=== PATIENT | male | born 1985 | race Caucasian/White ===

== ENCOUNTER → 2020-03-06 | Outpatient (CLI) | payer SELFPAY ==
--- NOTE | 2020-03-06 15:54 | Diagnostic Imaging Report ---
INDICATION: Lower back pain. COMPARISON: None. FINDINGS: Frontal and lateral views of the lumbar spine were obtained. Alignment and vertebral heights are maintained. There is no fracture or destructive process. No significant degenerative disease is noted in the lumbar spine. Limited views of the abdomen demonstrate nonobstructive bowel gas pattern. IMPRESSION: 1. No acute fracture or dislocation of the lumbar spine. Dictated by: Dictated on workstation # [id number]
== END ==
LOC: RAD FS 15:29
PROVIDERS: ATTEND Nurse Practitioner Family
DX: M54.5 Low back pain (principal)
CPT/HCPCS: 72100

== ENCOUNTER 2020-04-06 15:34 | Emergency (ER) | payer SELFPAY ==
[~2020-04-06] VITALS: Ht 185 cm; Wt 81.0 kg
[2020-04-06] MEDS ORDERED: ORPHENADRINE 60 MG/2 ML (NORFLEX) AMP (ED ONLY) IM STA (15:44)
[2020-04-06] MEDS ORDERED: KETOROLAC 30 MG/ML VIAL IM STA (15:44)
[2020-04-06 15:48] VITALS: BP 125/82
--- NOTE | 2020-04-06 15:51 | ED Back Pain ---
General Chief Complaint: Back Problems Stated Complaint: LWR BACK/RT LEG PAIN Source of Information: Patient History of Present Illness Date Seen by Provider: Apr 06, 2020 Time Seen by Provider: 15:46 Initial Comments 34-year-old male presents with chronic right-sided low back pain with sciatica For the last 10 to 12 weeks. Patient reports he had a CT myelogram done yesterday but does not know the results. Patient reports that they are planning on doing a surgery for it. Patient comes in today for pain. He has no new acute injury. Reports that he has been taking a few extra pain medications, he vomited and now the was having the pain. He denies any fever, chills. No issues with his bowel or bladder. Allergies and Home Medications Allergies Coded Allergies: No Known Drug Allergies (Unverified , 04/06/20) Patient Home Medication List Home Medication List Reviewed: Yes Review of Systems Constitutional: No chills EENTM: no symptoms reported Respiratory: no symptoms reported Cardiovascular: no symptoms reported Gastrointestinal: vomiting Genitourinary: no symptoms reported Musculoskeletal: see HPI, back pain Skin: no symptoms reported Psychiatric/Neurological: See HPI Past Jtngbwz-Cuptxf-Vfxnly Hx Past Med/Social Hx: Reviewed Nursing Past Med/Soc Hx Physical Exam Vital Signs Capillary Refill : Height, Weight, BMI Height: '" Weight: lbs. oz. kg; BMI Method: General Appearance: Other (Mild discomfort) HEENT: PERRL/EOMI Neck: Normal Inspection, Non Tender, Supple Cardiovascular: Regular Rate, Rhythm, No Edema Respiratory: Lungs Clear, Normal Breath Sounds Gastrointestinal: Non Tender, Soft Back: Other (Tenderness to palpation right lower back) Extremity: Normal Capillary Refill, Normal Inspection, Other (Painful but normal range of motion right leg) Neurologic/Psychiatric: Alert, Oriented x3, No Motor/Sensory Deficits, Normal Mood/Affect, deputy county clerk II-XII Norm as Tested Skin: Normal Color, Warm/Dry Progress/Results/Core Measures Results/Orders My Orders Orders - KULWINDER PUENTES DO Ketorolac Injection (Toradol Injection) (04/06/20 15:44) Norflex 60 Mg Im (04/06/20 15:44) Progress Progress Note : Time: 15:49 Progress Note Patient has known low back pain with sciatica With no new acute injury. He will need to follow-up with his primary care for the results of his CT myelogram, surgery preparation and further outpatient therapy. Patient is already prescribed pain medication. I will add baclofen. Patient stable and will be discharged home Departure Impression Primary Impression: Lumbar radiculopathy Additional Impression: Sciatica of right side Disposition: HOME, SELF-CARE Condition: Stable Departure-Patient Inst. Referrals: GAURAV LEONARDO MD (PCP/Family) Primary Care Physician Patient Instructions: Sciatica, Back Flexion Stretching Exercises, Radiculopathy (DC) Add. Discharge Instructions: 4% topical lidocaine with menthol to affected area as directed on package Warm moist heat to affected area All discharge instructions reviewed with patient and/or family. Voiced understanding. Scripts Baclofen (Baclofen) 5 Mg Tablet 5 MG PO Q8H, #15 TAB Prov: KULWINDER PUENTES DO 04/06/20 KULWINDER PUENTES DO Apr 06, 2020 15:51
[2020-04-06] MEDS ORDERED: BACL5TAB PO (15:52)
== END 2020-04-06 16:05 | disposition home or self-care (01) ==
LOC: EDUNIT# 15:34 → ER FS 15:37
DX: M54.16 Radiculopathy, lumbar region (principal); M54.31 Sciatica, right side
CPT/HCPCS: 99284

== ENCOUNTER → 2021-01-22 | Outpatient (CLI) | payer OTHER ==
[~2021-01-22] MED LIST: BACL5TAB PO
--- NOTE | 2021-01-22 11:03 | Diagnostic Imaging Report ---
INDICATION: Surgery in April 2020. Continued back pain. EXAMINATION: Lumbar spine MRI on 01/22/2021. FINDINGS: There is normal height and alignment of the vertebral bodies. No fractures or subluxations. The tip of the conus is unremarkable in appearance and location. L1-L2: Unremarkable. L2-L3: There is bilateral facet and ligamentum flavum hypertrophy. No central stenosis. There is mild bilateral neuroforaminal narrowing. L3-L4: There is bilateral facet and ligamentum flavum hypertrophy. There is a mild right paracentral broad-based bulging disc. The central canal is patent. There is moderate bilateral neuroforaminal stenosis. L4-L5: There is intervertebral disc space narrowing, disc desiccation, and a broad-based bulging disc with bilateral facet and ligamentum flavum hypertrophy. There is secondary moderate central stenosis with narrowing of the lateral recesses. There is severe left and moderate to severe right neuroforaminal stenosis. L5-S1: There is intervertebral disc space narrowing, disc desiccation, and a broad-based bulging disc containing an annular tear. There is bilateral facet and ligamentum flavum hypertrophy. There is secondary moderate central stenosis. There is bilateral moderate to severe neuroforaminal narrowing. The visualized intra-abdominal structures appear unremarkable. IMPRESSION: Multilevel degenerative disease as discussed above. Dictated by: Dictated on workstation # [id number]
== END ==
LOC: RAD 08:45
PROVIDERS: ATTEND Family Medicine
DX: M47.816 Spondylosis without myelopathy or radiculopathy, lumbar region (principal); M47.817 Spondylosis without myelopathy or radiculopathy, lumbosacral region; M51.26 Other intervertebral disc displacement, lumbar region; M51.27 Other intervertebral disc displacement, lumbosacral region; M51.36 Other intervertebral disc degeneration, lumbar region; M51.37 Other intervertebral disc degeneration, lumbosacral region; M48.061 Spinal stenosis, lumbar region without neurogenic claudication; M48.07 Spinal stenosis, lumbosacral region; M24.28 Disorder of ligament, vertebrae
CPT/HCPCS: 72148

== ENCOUNTER 2021-03-21 13:37 | Observation (INO) | payer SELFPAY ==
[~2021-03-21] VITALS: Ht 187.9 cm; Wt 76.0 kg
[2021-03-21] MEDS ORDERED: morphine INJ 10 MG/ML 1ML (SYR OR VIAL) IVP STA ×2 (13:53→15:00)
[2021-03-21] MEDS ORDERED: NS IV 1000 ML 1,000 ML IV SCH ×2 (14:00→15:00)
[2021-03-21] MEDS ORDERED: NS 100 ML (IVPB) BAG IV ONE (14:00)
[2021-03-21] MEDS ORDERED: ONDANSETRON 4 MG/2 ML (SDV) Z0FRAN IVP ONE (14:00)
[2021-03-21] MEDS ORDERED: IOHEXOL 350 MG/ML 100 ML (OMNIPAQUE 350) VIAL IV ONE (14:00)
[2021-03-21] MEDS ORDERED: CATHETER FLUSH 10 ML SYR IV PRN ×2 (14:00→18:45)
[2021-03-21] MEDS ORDERED: HOLD METFORMIN - RECEIVED CONTRAST 20 ML VIAL IV SCH (14:00)
[2021-03-21 14:02] LABS: BASOPHILS % (AUTO) 1 % (0-10); EOSINOPHILS % (AUTO) 2 % (0-10); HEMATOCRIT 48 % (40-54); HEMOGLOBIN 16.4 g/dL (13.3-17.7); LYMPHOCYTES % (AUTO) 24 % (12-44); MEAN CORPUSCULAR HEMOGLOBIN 30 pg (25-34); MEAN CORPUSCULAR HGB CONC 35 g/dL (32-36); MEAN CORPUSCULAR VOLUME 87 fL (80-99); MEAN PLATELET VOLUME 8.6 fL (9.0-12.2); MONOCYTES % (AUTO) 7 % (0-12); NEUTROPHILS % (AUTO) 66 % (42-75); PLATELET COUNT 266 10^3/uL (130-400)
[2021-03-21 14:03] LABS: BASOPHILS # (AUTO) 0.1 10^3/uL (0.0-0.1); EOSINOPHILS # (AUTO) 0.2 10^3/uL (0.0-0.3); LYMPHOCYTES # (AUTO) 2.4 X 10^3 (1.0-4.0); MONOCYTES # (AUTO) 0.7 X 10^3 (0.0-1.0); NEUTROPHILS # (AUTO) 6.6 X 10^3 (1.8-7.8)
--- NOTE | 2021-03-21 14:10 | ED General ---
General Chief Complaint: Back Problems Stated Complaint: WOUND LOWER ABD Source of Information: Patient (VENECIA QUIROZ DO) History of Present Illness Date Seen by Provider: Mar 21, 2021 Time Seen by Provider: 13:35 Initial Comments Patient is a 35-year-old Oriental [employer] male who presents with right lower quadrant/inguinal penetrating trauma. Patient was working using machinery when a piece of angle iron flew off penetrating his lower torso. Patient removed metal prior to ED arrival. On exam, the patient has a 5 cm gaping deep laceration with minimal external bleeding. Distal pulses are intact. An IV was established, fluids and pain medication were given. Dr. Hnids on-call for trauma accepts patient to [facility] emergency department. A CT of the abdomen pelvis will be obtained with results pending prior to EMS transfer. [facility] ED provider made aware of transfer. Timing/Duration: 1/2 Hour Severity: Moderate Modifying Factors: improves with Other Associated Systoms: Other (VENECIA QUIROZ DO) Allergies and Home Medications Allergies Coded Allergies: No Known Drug Allergies (Unverified , 04/06/20) Patient Home Medication List Home Medication List Reviewed: Yes (VENECIA QUIROZ DO) Baclofen (Baclofen) 5 Mg Tablet, 5 MG PO Q8H Prescribed by: KULWINDER PUENTES on 04/06/20 5042 Review of Systems Review of Systems Constitutional: see HPI Gastrointestinal: see HPI Skin: see HPI (VENECIA QUIROZ DO) Past Qvabfvm-Smqnlx-Ictjjp Hx Patient Social History Tobacco Use?: Yes Tobacco type used: Cigarettes Smoking Status: Current Everyday Smoker Use of E-Cig and/or Vaping dev: No Substance use?: No Alcohol Use?: Yes Alcohol type: Hard Liquor Pt feels they are or have been: No (VENECIA QUIROZ DO) Seasonal Allergies Seasonal Allergies: No (VENECIA QUIROZ DO) Past Medical History Surgeries: Yes Orthopedic Respiratory: No Cardiac: No Neurological: No Genitourinary: No Gastrointestinal: No Musculoskeletal: No Endocrine: No HEENT: No Cancer: No Psychosocial: No Integumentary: No Blood Disorders: No (VENECIA QUIROZ DO) Physical Exam Vital Signs Vital Signs - First Documented 03/21/21 14:02 Temp 37.0 Pulse 82 Resp 16 B/P (MAP) 138/75 (96) Pulse Ox 99 O2 Delivery Room Air (YANIRA MAI MD) Vital Signs Capillary Refill : (VENECIA QUIROZ DO) Height, Weight, BMI Height: '" Weight: lbs. oz. kg; 23.00 BMI Method: General Appearance: No Apparent Distress, Mild Distress HEENT: PERRL/EOMI Neck: Full Range of Motion Respiratory: Lungs Clear, Normal Breath Sounds Cardiovascular: Regular Rate, Rhythm Gastrointestinal: Soft; No Distended, No Guarding, No Rebound; Tenderness, Other (5 cm gaping deep laceration over right pelvis/inguinal region with controlled external bleeding. The wound was now probed digitally. ) Back: Normal Inspection Extremity: Normal Capillary Refill, Normal Inspection, Pelvis Stable Neurologic/Psychiatric: Alert, Oriented x3, No Motor/Sensory Deficits Skin: Normal Color (VENECIA QUIROZ DO) Progress/Results/Core Measures Suspected Sepsis SIRS Temperature: Pulse: Respiratory Rate: Laboratory Tests 03/21/21 13:55: White Blood Count 10.0 Blood Pressure / Mean: Laboratory Tests 03/21/21 13:55: Platelet Count 266 (VENECIA QUIROZ DO) Results/Orders Lab Results Laboratory Tests Test 03/21/21 13:55 03/21/21 15:04 03/21/21 15:45 Range/Units White Blood Count 10.0 7.9 4.3-11.0 10^3/uL Red Blood Count 5.46 4.81 4.30-5.52 10^6/uL Hemoglobin 16.4 14.4 13.3-17.7 g/dL Hematocrit 48 42 40-54 % Mean Corpuscular Volume 87 87 80-99 fL Mean Corpuscular Hemoglobin 30 30 25-34 pg Mean Corpuscular Hemoglobin Concent 35 34 32-36 g/dL Red Cell Distribution Width 12.8 12.5 10.0-14.5 % Platelet Count 266 208 130-400 10^3/uL Mean Platelet Volume 8.6 L 8.9 L 9.0-12.2 fL Immature Granulocyte % (Auto) 0 0 % Neutrophils (%) (Auto) 66 70 42-75 % Lymphocytes (%) (Auto) 24 20 12-44 % Monocytes (%) (Auto) 7 7 0-12 % Eosinophils (%) (Auto) 2 2 0-10 % Basophils (%) (Auto) 1 1 0-10 % Neutrophils # (Auto) 6.6 5.5 1.8-7.8 10^3/uL Lymphocytes # (Auto) 2.4 1.6 1.0-4.0 10^3/uL Monocytes # (Auto) 0.7 0.6 0.0-1.0 10^3/uL Eosinophils # (Auto) 0.2 0.1 0.0-0.3 10^3/uL Basophils # (Auto) 0.1 0.0 0.0-0.1 10^3/uL Immature Granulocyte # (Auto) 0.0 0.0 0.0-0.1 10^3/uL Sodium Level 139 135-145 MMOL/L Potassium Level 3.5 L 3.6-5.0 MMOL/L Chloride Level 103 98-107 MMOL/L Carbon Dioxide Level 23 21-32 MMOL/L Anion Gap 13 5-14 MMOL/L Blood Urea Nitrogen 13 7-18 MG/DL Creatinine 0.70 0.60-1.30 MG/DL Estimat Glomerular Filtration Rate 130 BUN/Creatinine Ratio 19 Glucose Level 115 H 70-105 MG/DL Calcium Level 9.1 8.5-10.1 MG/DL Corrected Calcium 8.5-10.1 MG/DL Total Bilirubin 0.3 0.1-1.0 MG/DL Aspartate Amino Transf (AST/SGOT) 26 5-34 U/L Alanine Aminotransferase (ALT/SGPT) 24 0-55 U/L Alkaline Phosphatase 61 40-136 U/L Total Protein 7.6 6.4-8.2 GM/DL Albumin 4.6 H 3.2-4.5 GM/DL Percent Immature Platelet Fraction 0.8 0.0-7.6 % Urine Color YELLOW Urine Clarity CLEAR Urine pH 6.0 5-9 Urine Specific Cameron 1.010 L 1.016-1.022 Urine Protein NEGATIVE NEGATIVE Urine Glucose (UA) NEGATIVE NEGATIVE Urine Ketones NEGATIVE NEGATIVE Urine Nitrite NEGATIVE NEGATIVE Urine Bilirubin NEGATIVE NEGATIVE Urine Urobilinogen 0.2 < = 1.0 MG/DL Urine Leukocyte Esterase NEGATIVE NEGATIVE Urine RBC (Auto) 1+ H NEGATIVE Urine RBC RARE /HPF Urine WBC RARE /HPF Urine Squamous Epithelial Cells NONE /HPF Urine Crystals NONE /LPF Urine Bacteria TRACE /HPF Urine Casts NONE /LPF Urine Mucus NEGATIVE /LPF Urine Culture Indicated NO (YANIRA MAI MD) My Orders Orders - YANIRA MAI MD Morphine Injection (Morphine Injection (03/21/21 15:00) Ns Iv 1000 Ml (Sodium Chloride 0.9%) (03/21/21 15:00) Dipht,Pertuss(Acell),Tet Adult (Boostrix (03/21/21 15:00) Tranexamic Acid Injection (Cyklokapron I (03/21/21 15:15) Ns (Ivpb) (Sodium C... W/Tranexamic Acid (03/21/21 15:15) Type And Screen (03/21/21 15:03) Cbc With Automated Diff (03/21/21 15:03) Lidocaine/Epi 2% 1:100,000 (Xylocaine/Ep (03/21/21 15:12) Morphine Injection (Morphine Injection (03/21/21 15:12) Cefazolin Injection (Ancef Injection) (03/21/21 15:30) Fentanyl Inj (Sublimaze Injection) (03/21/21 15:14) Lorazepam Injection (Ativan Injection) (03/21/21 15:14) Lidocaine/Epi 2% 1:100,000 (Xylocaine/Ep (03/21/21 15:18) Lorazepam Injection (Ativan Injection) (03/21/21 15:30) Fentanyl Inj (Sublimaze Injection) (03/21/21 15:31) Ua Culture If Indicated (03/21/21 15:50) Lidocaine/Epi 2% 1:100,000 (Xylocaine/Ep (03/21/21 16:00) (YANIRA MAI MD) Medications Given in ED Current Medications Medications Dose Ordered Sig/Denise Route Start Time Stop Time Status Last Admin Dose Admin Cefazolin Sodium 1,000 mg ONCE ONCE IV 03/21/21 15:30 03/21/21 15:31 DC 03/21/21 15:36 1,000 MG Diphtheria/ Tetanus/Acell Pertussis 0.5 ml ONCE ONCE IM 03/21/21 15:00 03/21/21 15:02 DC 03/21/21 15:06 0.5 ML Iohexol 100 ml ONCE ONCE IV 03/21/21 14:00 03/21/21 14:01 DC 03/21/21 14:27 100 ML Lorazepam 1 mg ONCE ONCE IVP 03/21/21 15:30 03/21/21 15:31 DC 03/21/21 15:26 1 MG Ondansetron HCl 4 mg ONCE ONCE IVP 03/21/21 14:00 03/21/21 14:01 DC 03/21/21 14:10 4 MG Sodium Chloride 10 ml NEEDED PRN IV 03/21/21 14:00 03/21/21 14:27 10 ML Sodium Chloride 100 ml ONCE ONCE IV 03/21/21 14:00 03/21/21 14:01 DC 03/21/21 14:27 100 ML Tranexamic Acid 1000 mg/Sodium Chloride 60 ml @ 330 mls/hr ONCE ONCE IV 03/21/21 15:15 03/21/21 15:25 DC 03/21/21 15:22 330 MLS/HR (YANIRA MAI MD) Vital Signs/I&O 03/21/21 03/21/21 14:02 14:15 Temp 37.0 36.5 Pulse 82 78 Resp 16 16 B/P (MAP) 138/75 (96) 124/68 (86) Pulse Ox 99 100 O2 Delivery Room Air Room Air (YANIRA MAI MD) Vital Signs/I&O Capillary Refill : (VENECIA QUIROZ DO) Progress Note : Time: 15:15 Progress Note Patient received in transfer from [place] emergency department, penetrating wound to the right inguinal canal. EMS reports patient's vital signs were stable in route he did become somewhat tachycardic with a heart rate of 105. EMS did note increased bleeding out around the bandage around the right groin. Patient states his pain is a "6". He is not nauseated. Patient reports he did not get a tetanus shot prior to transfer nor did he get antibiotics. Both of these are st arted here in the emergency department in [place]. Patient's abdomen is soft. He has about a 4 inch deep laceration/penetrating wound in the right groin that is actively bleeding. Only a quick glance at the wound is done by me, other than that 4 x 4's and direct pressure over the wound was immediately placed. Held until the surgeon got here, Dr. HINDS. Dr. HINDS was in the room less than 15 minutes after patient arrival to the emergency department. He is exploring and attending to the wound at this time. Patient is given 100 mcg of fentanyl with 1 mg of Ativan. We will go ahead and do the TXA bolus and drip. (YANIRA MAI MD) Critical Care Note Critical Care Start Time: 15:15 Stop Time: 15:35 Total Time (minutes) 20 minutes critical care time in the initial evaluation and management of this prior to 1 trauma patient. Initial evaluation includes physical examination of the patient with quick evaluation of the right inguinal wound, direct pressure over the wound by me. Fluid management, review of the medical record from [facility], discussion with Dr. HINDS, trauma surgeon. Initiation of antibiotics, tetanus and TXA. (YANIRA MAI MD) Departure Communication (Admissions) CT abdomen pelvis: Pending An IV was established, fluids and pain medication were given. Dr. Hinds on-call trauma surgeon consulted to [place] [facility] emergency department for management. A CT of the abdomen pelvis will be obtained with results pending prior to EMS transfer. [facility] ED provider made aware of transfer. (VENECIA QUIROZ DO) Impression Primary Impression: Penetrating abdominal trauma Qualified Codes: S31.109A - Unspecified open wound of abdominal wall, unspecified quadrant without penetration into peritoneal cavity, initial encounter Disposition: ADMITTED INPATIENT Condition: Stable Admissions Decision to Admit Reason: Admit from ER (Trauma) Decision to Admit/Date: Mar 21, 2021 Time/Decision to Admit Time: 15:20 (YANIRA MAI MD) Departure-Patient Inst. Decision time for Depature: 14:14 (VENECIA QUIROZ DO) Referrals: GAURAV LEONARDO MD (PCP/Family) Primary Care Physician VENECIA QUIROZ DO Mar 21, 2021 14:10 YANIRA MAI MD Mar 21, 2021 15:17
[2021-03-21 14:21] LABS: CARBON DIOXIDE 23 MMOL/L (21-32); CHLORIDE 103 MMOL/L (98-107); POTASSIUM 3.5 MMOL/L (3.6-5.0); SODIUM 139 MMOL/L (135-145)
[2021-03-21 14:22] LABS: ALANINE AMINOTRANSFERASE 24 U/L (0-55); ALBUMIN 4.6 GM/DL (3.2-4.5); ALKALINE PHOSPHATASE 61 U/L (40-136); BILIRUBIN,TOTAL 0.3 MG/DL (0.1-1.0); BUN/CREATININE RATIO 19; CALCIUM 9.1 MG/DL (8.5-10.1); GFR ESTIMATED 130; GLUCOSE 115 MG/DL (70-105); TOTAL PROTEIN 7.6 GM/DL (6.4-8.2)
--- NOTE | 2021-03-21 14:45 | Diagnostic Imaging Report ---
CT ABDOMEN/PELVIS W TECHNIQUE: Multiple contiguous axial images were obtained through the abdomen and pelvis after administration of intravenous contrast. All CT scans use one or more of the following dose optimizing techniques: automated exposure control, MA and/or KvP adjustment based on patient size and exam type or iterative reconstruction. INDICATION: Penetrating trauma of lower abdomen COMPARISON: None available. FINDINGS: Lower chest: The lung bases are clear. No pericardial or pleural effusion. Peritoneum: No free intraperitoneal air or fluid. Liver and biliary system: The liver is normal. The gallbladder is normal. No biliary duct dilation. Spleen and Pancreas: Spleen is normal. The pancreas enhances normally without mass lesion or peripancreatic inflammatory changes. Adrenals: Normal. tract: The kidneys enhance normally without suspicious mass or obstruction. Urinary bladder is distended without wall thickening. Prostate is not enlarged. GI tract: Stomach is decompressed. No bowel obstruction. No pericolonic inflammatory changes. The appendix is normal. Vasculature and Lymph nodes: Normal caliber aorta. See below for details of vascular injury in the right lower quadrant. No abdominal or pelvic lymphadenopathy. Musculoskeletal: No fracture. There is a dermal wound in the right lower quadrant just medial to the anterior superior iliac spine. There are few foci of soft tissue gas and ill-defined low-attenuation is likely due to intramuscular hematoma within the iliac is muscle. There is a small focus of contrast blush at the base of the dermal wound progressively fills in on delayed phase images and is likely due to injury associated with the deep circumflex iliac artery or vein which courses deep to the bone. IMPRESSION: 1. Penetrating injury in the right lower quadrant results in injury of a branch of the right deep circumflex iliac artery or vein. There is a small focus of contrast blush on early phase of imaging which progressively fills in on delayed phase imaging and the appearance could be due to small arterial bleed versus venous injury. 2. No radiopaque foreign body. 3. No other visceral injury within the abdomen or pelvis. Case was discussed with Dr. Ovalle by Dr. Dewey Piña at 2:40 PM on 03/21/2021. Dictated by: Dictated on workstation # [id number]
[2021-03-21] MEDS ORDERED: TETANUS,DIPTH,PERTUSS P/F (BOOSTRIX) 0.5 ML VIAL IM ONE (15:00)
[2021-03-21 15:10] LABS: BASOPHILS % (AUTO) 1 % (0-10); EOSINOPHILS # (AUTO) 0.1 10^3/uL (0.0-0.3); EOSINOPHILS % (AUTO) 2 % (0-10); HEMATOCRIT 42 % (40-54); HEMOGLOBIN 14.4 g/dL (13.3-17.7); LYMPHOCYTES # (AUTO) 1.6 10^3/uL (1.0-4.0); LYMPHOCYTES % (AUTO) 20 % (12-44); MEAN CORPUSCULAR HEMOGLOBIN 30 pg (25-34); MEAN CORPUSCULAR HGB CONC 34 g/dL (32-36); MEAN CORPUSCULAR VOLUME 87 fL (80-99); MEAN PLATELET VOLUME 8.9 fL (9.0-12.2); MONOCYTES # (AUTO) 0.6 10^3/uL (0.0-1.0); MONOCYTES % (AUTO) 7 % (0-12); NEUTROPHILS # (AUTO) 5.5 10^3/uL (1.8-7.8); NEUTROPHILS % (AUTO) 70 % (42-75); PLATELET COUNT 208 10^3/uL (130-400); WHITE BLOOD COUNT 7.9 10^3/uL (4.3-11.0)
[2021-03-21] MEDS ORDERED: morphine INJ 10 MG/ML 1ML (SYR OR VIAL) ONE (15:12)
[2021-03-21] MEDS ORDERED: LIDOCAINE/EPI 2% 1:100,00 (XYLOCAINE) 20 ML VIAL ONE ×2 (15:12→15:18)
[2021-03-21] MEDS ORDERED: LORazepam INJ 2 MG/ML (ATIVAN) VIAL ONE (15:14)
[2021-03-21] MEDS ORDERED: fentaNYL INJ 100 MCG/2 ML AMP ONE (15:14)
[2021-03-21] MEDS ORDERED: TRANEXAMIC ACID INJECTION 1,000 MG in NS (IVPB) 50 ML IV ONE (15:15)
[2021-03-21] MEDS ORDERED: TRANEXAMIC ACID INJECTION 1,000 MG in NS (IVPB) 250 ML IV SCH (15:15)
[2021-03-21] MEDS ORDERED: ceFAZolin INJECTION 1,000 MG VIAL IV ONE (15:30)
[2021-03-21] MEDS ORDERED: LORazepam INJ 2 MG/ML (ATIVAN) VIAL IVP ONE (15:30)
[2021-03-21] MEDS ORDERED: fentaNYL INJ 100 MCG/2 ML AMP IVP STA (15:31)
[2021-03-21 15:56] LABS: BILIRUBIN,URINE NEGATIVE (NEGATIVE); CLARITY,URINE CLEAR; COLOR,URINE YELLOW; GLUCOSE, URINE (UA) NEGATIVE (NEGATIVE); KETONES,URINE NEGATIVE (NEGATIVE); LEUKOCYTE ESTERASE ,URINE NEGATIVE (NEGATIVE); NITRITE,URINE NEGATIVE (NEGATIVE); PROTEIN,URINE NEGATIVE (NEGATIVE)
[2021-03-21] MEDS ORDERED: LIDOCAINE/EPI 2% 1:100,00 (XYLOCAINE) 20 ML VIAL INJ ONE ×2 (16:00)
[2021-03-21 16:04] LABS: BACTERIA,URINE TRACE /HPF; RBC,URINE RARE /HPF; WBC,URINE RARE /HPF
[2021-03-21] MEDS ORDERED: fentaNYL INJ 100 MCG/2 ML AMP IVP PRN ×2 (18:30→19:00)
[2021-03-21] MEDS ORDERED: oxyCODONE/APAP 7.5-325 MG (PERCOCET 7.5) TABLET PO PRN (18:30)
[2021-03-21] MEDS ORDERED: CEPH500T PO (18:32)
[2021-03-21] MEDS ORDERED: OXYC1TAB15 PO (18:32)
--- NOTE | 2021-03-21 18:34 | Discharge Inst-Surgical ---
D/C Lap Instructions-JOANN New, Converted, or Re-Newed RX: RX on Chart Follow Up Appt in 1 week Activity as tolerated No driving for 24 hours No driving while on pain medications Dressing change: pack wet to dry with qauze followed by pressure dressing BID. Regular Diet Symptoms to Report: Fever over 101 degree F, Nausea/Vomiting Infection Signs and Symptoms to report: Increased redness, Foul odor of wound, Increased drainage Bathing instructions: May shower Operative Area Clean/Dry; Keep incision clean/dry If any problems/questions: Contact your physician or go to Emergency Room THEO DAVID MD Mar 21, 2021 18:34
[2021-03-21] MEDS ORDERED: ONDANSETRON 4 MG/2 ML (SDV) Z0FRAN IVP PRN (19:00)
--- NOTE | 2021-03-21 19:29 | HISTORY AND PHYSICAL ---
DATE OF SERVICE: 03/21/2021 ADMITTING PRIMARY CARE PHYSICIAN: Dr. Ronal Gatica. HISTORY OF PRESENT ILLNESS: The patient presented to [facility] Department this afternoon after sustaining a penetrating trauma to the right groin. He states that he was working with a metal and some form of saw and there was a sharp blade like structure causing impalement and laceration to the right inguinal region just at the level of the inguinal ligament. He removed the foreign body and there was bleeding. A CT scan was performed, which did show no breach into the peritoneal cavity. There was a mention of a potential injury to one of the branching veins off of the right circumflex vein. Upon examination, the patient has a large wound approximately 10 cm in size, which is clean and there was venous oozing; however, after the administration of 1% lidocaine with epinephrine and suturing the fascia closed using interrupted 2-0 Vicryl sutures, there was good hemostasis. He has a palpable dorsalis pedis and posterior tibial pulses bilaterally. PAST MEDICAL HISTORY: Degenerative joint disease. PAST SURGICAL HISTORY: Left hip pinning lumbar open reduction and internal fixation. ALLERGIES: NO KNOWN DRUG ALLERGIES. MEDICATIONS: Baclofen 5 mg q.8 hours, oxycodone p.r.n. SOCIAL HISTORY: Positive smoke, social alcohol. FAMILY HISTORY: Noncontributory. VITAL SIGNS: Temperature 37.0, blood pressure 138/75, pulse 82, respirations 16, pulse ox 99% on room air. REVIEW OF SYSTEMS: Well-nourished male, currently guarded secondary to the discomfort of the right groin. He is not experiencing any shortness of breath and difficulty breathing. No chest pain, palpitations, diaphoresis. No nausea, vomiting, no diarrhea or constipation. No fever, chills, no recent inadvertent weight loss. All other review of systems negative. PHYSICAL EXAMINATION: CHEST: Clear. Good breath sounds bilaterally. HEART: Regular, no murmurs. EXTREMITIES: There is bilateral dorsalis pedis and posterior tibial pulses palpable bilateral. ABDOMEN: Soft, nontender, nondistended. SKIN: There is a laceration approximately 10 cm along the inguinal ligament in the direction of the inguinal ligament. This was examined after local anesthesia and the impalement appeared to be at a 90-degree angle with the skin and there was some venous oozing; however, there was no arterial bleeding. There was also no neurologic deficits. SKIN: Warm, dry. LABORATORY DATA: WBC 7.9, hemoglobin 14.4, hematocrit 42, platelets 208. BUN 13, creatinine 0.70. ASSESSMENT AND PLAN: A 35-year-old male with penetrating trauma to the right groin. After local anesthesia and physical examination, the impalement was at right degree angle at the inguinal ligament. This did not track superiorly or breached the abdominal fascia. The lesion did breach the fascia overlying the proximal portion of the right lower extremity and there was some venous oozing; however, there was no arterial bleeding identified. We will proceed with closing the fascial and deeper layers with an interrupted Vicryl suture in layers and leave the skin and subcutaneous open due to the bacterial contamination. He will also place tranexamic acid and the wound packed with wet to dry dressings followed by foam tape pressure dressing followed by a sandbag for the next 8 hours. We will reevaluate the wound tomorrow morning and if there is no bleeding, we will then discharge him home and instruct him to proceed with Keflex for the next week as well as wet to dry dressings on a b.i.d. basis to allow to close by secondary intention. Job ID: [id number] DocumentID: [id number] Dictated Date: 03/21/2021 18:54:43 Drywall Sander Date: 03/21/2021 19:28:15 Dictated By: THEO DAVID MD [facility]
--- NOTE | 2021-03-21 19:36 | OPERATIVE REPORT ---
DATE OF SERVICE: 03/21/2021 PREOPERATIVE DIAGNOSIS: A 10 cm laceration along the inguinal ligament. POSTOPERATIVE DIAGNOSES: Fascial breach with the impalement 90 degrees from the skin. There was no tracking superiorly or inferiorly and there was no breach into the peritoneal fascia. There was venous oozing identified and this was consistent with a CT scan finding of a possible partial laceration of a branch of the right circumflex vein. PROCEDURE: Local exploration of wound. Layered closure of the fascia and muscular layers using interrupted 2-0 Vicryl sutures. Hemostasis of lacerated blood vessel. SURGEON: Theo David MD. ANESTHESIA: Local. ESTIMATED BLOOD LOSS: Minimal. FINDINGS: Good hemostasis with no foreign body as well as no signs of infection. DISPOSITION: The patient tolerated the procedure well. INDICATIONS: The patient is a 35-year-old male who presented to [facility] after working with a metal and some form of a saw. There was a ricochet of the metal, which was shaped like a blade approximately 4 inches in diameter. He states he is unsure how deep the lesion went; however, there was a significant amount of bleeding. He was seen at [facility]. A CT scan was performed, which did show a possible partial laceration of a branch off of the right circumflex vein. Upon examination, there was venous oozing; however, this has slowed down with injection of 1% lidocaine with epinephrine. He has palpable dorsalis pedis and posterior tibial pulses bilaterally. DESCRIPTION OF PROCEDURE: After local anesthesia with 1% lidocaine with epinephrine, the fascia as well as the muscle layers were then closed in layers using 2-0 Vicryl interrupted sutures. Once this was done, good hemostasis was observed. The skin and subcutaneous tissue was left open and the wound packed wet to dry, followed by a pressure dressing with a 4-inch foam tape followed by a sandbag for the next 8 hours. We will continue with monitoring as well as IV antibiotics and instruct staff to leave the dressing on overnight and we will personally remove the dressing and evaluate the wound tomorrow. Job ID: [id number] DocumentID: [id number] Dictated Date: 03/21/2021 18:59:47 Bi Developer Date: 03/21/2021 19:35:23 Dictated By: THEO DAVID MD
[2021-03-21] MEDS: CATHETER FLUSH 10 ML SYR IV SCH (21:47)
[2021-03-21] MEDS: HYDROcodone/APAP 5 MG/325 MG (LORTAB) TAB PO PRN (21:47)
[2021-03-21] MEDS ORDERED: NS (IVPB) 50 ML ONE (21:54)
[2021-03-21] MEDS ORDERED: SODIUM CHLORIDE IV SCH ×2 (23:00)
[2021-03-21] MEDS ORDERED: TRANEXAMIC ACID IV SCH ×2 (23:00)
[2021-03-21] MEDS: ceFAZolin INJECTION 1,000 MG VIAL IV SCH (23:32)
[2021-03-22 05:22] VITALS: BP 119/79
[2021-03-22 05:42] LABS: BASOPHILS # (AUTO) 0.1 10^3/uL (0.0-0.1); BASOPHILS % (AUTO) 0 % (0-10); EOSINOPHILS # (AUTO) 0.4 10^3/uL (0.0-0.3); EOSINOPHILS % (AUTO) 4 % (0-10); HEMATOCRIT 43 % (40-54); HEMOGLOBIN 14.4 g/dL (13.3-17.7); LYMPHOCYTES # (AUTO) 1.8 10^3/uL (1.0-4.0); LYMPHOCYTES % (AUTO) 16 % (12-44); MEAN CORPUSCULAR HEMOGLOBIN 30 pg (25-34); MEAN CORPUSCULAR HGB CONC 33 g/dL (32-36); MEAN CORPUSCULAR VOLUME 89 fL (80-99); MONOCYTES # (AUTO) 1.1 10^3/uL (0.0-1.0); MONOCYTES % (AUTO) 10 % (0-12); NEUTROPHILS # (AUTO) 8.2 10^3/uL (1.8-7.8); NEUTROPHILS % (AUTO) 70 % (42-75); PLATELET COUNT 195 10^3/uL (130-400); WHITE BLOOD COUNT 11.6 10^3/uL (4.3-11.0)
[2021-03-22] MEDS: HYDROcodone/APAP 5 MG/325 MG (LORTAB) TAB PO PRN ×2 (06:29→09:50)
[2021-03-22] MEDS: CATHETER FLUSH 10 ML SYR IV SCH (06:30)
[2021-03-22 07:10] VITALS: BP 115/72
[2021-03-22] MEDS ORDERED: fentaNYL INJ 100 MCG/2 ML AMP IVP ONE (07:30)
--- NOTE | 2021-03-22 07:50 | Progress Note ---
Subjective Date Seen by a Provider: Mar 22, 2021 Time Seen by a Provider: 07:00 Subjective/Events-last exam doing well. no bleeding per wound. good distal pulses. Objective Exam Vital Signs Date Time Temp Pulse Resp B/P (MAP) Pulse Ox O2 Delivery O2 Flow Rate FiO2 03/22/21 07:10 37.3 81 18 115/72 (86) 92 Room Air 03/22/21 05:24 92 Room Air 03/22/21 05:22 36.9 95 14 119/79 (92) 92 Room Air 03/22/21 01:38 96 Room Air 03/22/21 01:00 80 03/22/21 00:21 36.7 87 20 117/73 95 03/21/21 22:50 36.4 03/21/21 22:30 96 Room Air 03/21/21 20:00 37.7 93 14 126/83 96 03/21/21 19:01 98 03/21/21 18:21 98 Room Air 03/21/21 18:15 37.1 90 17 107/70 92 Room Air 03/21/21 17:57 94 20 117/79 98 Room Air 03/21/21 14:51 36.2 111 20 142/90 (107) 98 Room Air 03/21/21 14:51 36.2 111 20 142/90 (107) 98 Room Air 03/21/21 14:15 36.5 78 16 124/68 (86) 100 Room Air 03/21/21 14:02 37.0 82 16 138/75 (96) 99 Room Air I & O 03/22/21 07:00 Intake Total 2750 ml Output Total 2000 ml Balance 750 ml Capillary Refill : Less Than 3 Seconds General Appearance: No Apparent Distress HEENT: PERRL/EOMI Neck: Full Range of Motion Respiratory: Chest Non Tender, Lungs Clear, Normal Breath Sounds Cardiovascular: Regular Rate, Rhythm Peripheral Pulses: 3+ Dorsalis Pedis (R) Gastrointestinal: normal bowel sounds, non tender, soft Extremity: Normal Capillary Refill Neurologic/Psychiatric: Alert, Oriented x3 Skin: Normal Color, Other (wound clean/dry) Lymphatic: No Adenopathy Results Lab Laboratory Tests 03/21/21 13:55: White Blood Count 10.0, Red Blood Count 5.46, Hemoglobin 16.4, Hematocrit 48, Mean Corpuscular Volume 87, Mean Corpuscular Hemoglobin 30, Mean Corpuscular Hemoglobin Concent 35, Red Cell Distribution Width 12.8, Platelet Count 266, Mean Platelet Volume 8.6L, Immature Granulocyte % (Auto) 0, Neutrophils (%) (Auto) 66, Lymphocytes (%) (Auto) 24, Monocytes (%) (Auto) 7, Eosinophils (%) (Auto) 2, Basophils (%) (Auto) 1, Neutrophils # (Auto) 6.6, Lymphocytes # (Auto) 2.4, Monocytes # (Auto) 0.7, Eosinophils # (Auto) 0.2, Basophils # (Auto) 0.1, Immature Granulocyte # (Auto) 0.0, Sodium Level 139, Potassium Level 3.5L, Chloride Level 103, Carbon Dioxide Level 23, Anion Gap 13, Blood Urea Nitrogen 13, Creatinine 0.70, Estimat Glomerular Filtration Rate 130, BUN/Creatinine Ratio 19, Glucose Level 115H, Calcium Level 9.1, Corrected Calcium , Total Bilirubin 0.3, Aspartate Amino Transf (AST/SGOT) 26, Alanine Aminotransferase (ALT/SGPT) 24, Alkaline Phosphatase 61, Total Protein 7.6, Albumin 4.6H 03/21/21 15:04: White Blood Count 7.9, Red Blood Count 4.81, Hemoglobin 14.4, Hematocrit 42, Mean Corpuscular Volume 87, Mean Corpuscular Hemoglobin 30, Mean Corpuscular Hemoglobin Concent 34, Red Cell Distribution Width 12.5, Platelet Count 208, Mean Platelet Volume 8.9L, Immature Granulocyte % (Auto) 0, Neutrophils (%) (Auto) 70, Lymphocytes (%) (Auto) 20, Monocytes (%) (Auto) 7, Eosinophils (%) (Auto) 2, Basophils (%) (Auto) 1, Neutrophils # (Auto) 5.5, Lymphocytes # (Auto) 1.6, Monocytes # (Auto) 0.6, Eosinophils # (Auto) 0.1, Basophils # (Auto) 0.0, Immature Granulocyte # (Auto) 0.0, Percent Immature Platelet Fraction 0.8 03/21/21 15:45: Urine Color YELLOW, Urine Clarity CLEAR, Urine pH 6.0, Urine Specific [place] 1.010L, Urine Protein NEGATIVE, Urine Glucose (UA) NEGATIVE, Urine Ketones NE GATIVE, Urine Nitrite NEGATIVE, Urine Bilirubin NEGATIVE, Urine Urobilinogen 0.2, Urine Leukocyte Esterase NEGATIVE, Urine RBC (Auto) 1+H, Urine RBC RARE, Urine WBC RARE, Urine Squamous Epithelial Cells NONE, Urine Crystals NONE, Urine Bacteria TRACE, Urine Casts NONE, Urine Mucus NEGATIVE, Urine Culture Indicated NO 03/22/21 05:04: White Blood Count 11.6H, Red Blood Count 4.84, Hemoglobin 14.4, Hematocrit 43, Mean Corpuscular Volume 89, Mean Corpuscular Hemoglobin 30, Mean Corpuscular Hemoglobin Concent 33, Red Cell Distribution Width 12.7, Platelet Count 195, Mean Platelet Volume 9.0, Immature Granulocyte % (Auto) 0, Neutrophils (%) (Auto) 70, Lymphocytes (%) (Auto) 16, Monocytes (%) (Auto) 10, Eosinophils (%) (Auto) 4, Basophils (%) (Auto) 0, Neutrophils # (Auto) 8.2H, Lymphocytes # (Auto) 1.8, Monocytes # (Auto) 1.1H, Eosinophils # (Auto) 0.4H, Basophils # (Auto) 0.1, Immature Granulocyte # (Auto) 0.0 Assessment/Plan Assessment/Plan Assess & Plan/Chief Complaint penetrating trauma right inguinal region with venous injury s/p deep fascial closure. wet to dry BID. ambulate. THEO DAVID MD Mar 22, 2021 07:50
[2021-03-22] MEDS ORDERED: DOCUSATE SODIUM 100 MG (COLACE) CAP PO SCH (09:00)
[2021-03-22] MEDS: ceFAZolin INJECTION 1,000 MG VIAL IV SCH (09:49)
== END 2021-03-22 10:30 | disposition home or self-care (01) ==
LOC: EDUNIT# 13:37 → ER FS 13:42 → CSD 15:51 → UNDOADMOB 15:51 → CSD 18:10 → UNDODISOB 03-22 11:30
PROVIDERS: ADMIT Surgery; ATTEND Surgery
DX: S31.119A Laceration without foreign body of abdominal wall, unspecified quadrant without penetration into peritoneal cavity, initial encounter (principal); F17.210 Nicotine dependence, cigarettes, uncomplicated; W26.8XXA Contact with other sharp object(s), not elsewhere classified, initial encounter; Z79.899 Other long term (current) drug therapy
CPT/HCPCS: 12034; 36415; 74177; 80053; 81000; 85025 ×2; 86850; 86900; 86901; 99291; G0378; G0390; 90715

== ENCOUNTER → 2021-07-03 | Outpatient (CLI) | payer OTHER ==
[~2021-07-03] MED LIST changes: +CEPH500T PO; +OXYC1TAB15 PO
--- NOTE | 2021-07-03 15:11 | Diagnostic Imaging Report ---
Clinical Indication: Patient has bilateral arm numbness, pain and headaches. Exam: MRI of the thoracic spine performed without IV contrast. Sequences include sagittal T1, sagittal T2, sagittal T2 fat-sat, and axial T2. Comparison: None. Findings: Thoracic spine has normal alignment with no fracture or dislocation. There is no abnormal paraspinal soft tissue signal or abnormality. The thoracic spinal cord has normal anatomic appearance with no abnormal cord signal. The thoracic vertebra have normal signal characteristics. There is a C6-C7 posterior disk bulge which appears at least mild central canal narrowing. There is mild right T5-T6 facet arthropathy. There is no significant central canal or neural foramen narrowing. There is a small T8-T9 right paracentral disk herniation. There is mild central canal narrowing. There is no significant neural foramen narrowing. There are chronic Schmorl's nodes involving the T11-T12 and L1-L2 level. Remainder of the lumbar spine shows no other significant degenerative changes. 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 There is no significant central canal or neural foramen narrowing. Dictated by: Dictated on workstation # [id number]
--- NOTE | 2021-07-03 15:13 | Diagnostic Imaging Report ---
CLINICAL INDICATION: Patient has bilateral arm numbness and pain and headache. EXAM: MRI of the cervical spine performed without IV contrast. Sequences include sagittal T1, sagittal T2, sagittal T2 fat-sat, and axial T2. COMPARISON: None. FINDINGS: Cervical spine has normal alignment with no fracture or dislocation. There is normal craniocervical and anterior atlanto-odontoid alignment. Cervical spinal cord has normal anatomic appearance with no abnormal cord signal. Limited visualization of the posterior fossa is unremarkable. There is no paraspinal soft tissue abnormality. There is diffuse central canal narrowing seen from the C3 through C6 level, which causes diffuse moderate central canal stenosis. C1-C2: There are degenerative spurs involving the atlanto-odontoid interval anteriorly. There is no significant central canal narrowing. C2-C3: There is no significant central canal stenosis. There is mild central canal narrowing. There is no significant disc bulge. C3-C4: There is no significant posterior disc bulge. There is moderate central canal stenosis. There is no significant neural foramen narrowing. C4-C5: There is no significant disc bulge. There is no significant neural foramen narrowing. There is moderate central canal narrowing. C5-C6: There is a small posterior disc bulge. There is no significant neural foramen narrowing. There is moderate central canal stenosis. C6-C7: There is a broad posterior disc herniation with superimposed right subarticular disc spur. There is [id number]-vavmzygb right neural foramen narrowing. There is mild left neural foramen narrowing. There is severe central canal stenosis. C7-T1: There is no significant central canal or neural foramen narrowing. 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 2: There is a small C6-C7 posterior disc herniation with right subarticular disc spur. There is oxbd-[id number] right neural foramen narrowing, severe central canal stenosis, and mild left neural foramen narrowing. Dictated by: Dictated on workstation # [id number]
== END ==
LOC: RAD 13:15
PROVIDERS: ATTEND Family Medicine
DX: M48.02 Spinal stenosis, cervical region (principal); M50.223 Other cervical disc displacement at C6-C7 level
CPT/HCPCS: 72141; 72146

== ENCOUNTER → 2022-03-25 | Outpatient (CLI) | payer OTHER ==
--- NOTE | 2022-03-25 16:38 | Diagnostic Imaging Report ---
EXAMINATION: MRI lumbar spine without contrast, 03/25/2022. TECHNIQUE: Multiplanar, multisequence MRI of the lumbar spine was performed without contrast. INDICATION: Chronic bilateral lower extremity pain and back pain. COMPARISON: 01/22/2021. FINDINGS: There is normal height and alignment of the vertebral bodies. Tip of the conus is unremarkable in appearance and location. L1-L2: Unremarkable. L2-L3: There is bilateral facet hypertrophy. There is no central stenosis. Mild bilateral neural foraminal narrowing noted. L3-L4: There is bilateral facet and ligamentum flavum hypertrophy with minimal right paracentral broad-based bulging disc material which flattens the ventral thecal sac. There is no central stenosis. Moderate bilateral neural foraminal narrowing present. These findings are stable from previous. L4-L5: There is disc desiccation with a broad-based bulging disc containing an annular tear. There is bilateral facet and ligamentum flavum hypertrophy. There is moderate central stenosis with narrowing of the lateral recesses, left greater than right. There is bilateral moderate neural foraminal stenosis. L5-S1: There is bilateral facet and ligamentum flavum hypertrophy with a broad-based bulging disc containing an annular tear. Findings cause moderate central stenosis with narrowing of the left lateral recess. Stable-appearing bilateral rcpppszz-qv-huwydy neural foraminal narrowing present. Visualized intra-abdominal structures are unremarkable. IMPRESSION: 1. Multilevel degenerative findings as detailed above. No significant interval change is seen since previous examination. Dictated by: Dictated on workstation # [id number]
== END ==
LOC: RAD 13:36
PROVIDERS: ATTEND Physician Assistant
DX: M47.816 Spondylosis without myelopathy or radiculopathy, lumbar region (principal); M47.817 Spondylosis without myelopathy or radiculopathy, lumbosacral region; M51.26 Other intervertebral disc displacement, lumbar region; M51.27 Other intervertebral disc displacement, lumbosacral region; M51.36 Other intervertebral disc degeneration, lumbar region; M51.37 Other intervertebral disc degeneration, lumbosacral region; M48.061 Spinal stenosis, lumbar region without neurogenic claudication; M48.07 Spinal stenosis, lumbosacral region
CPT/HCPCS: 72148